=== PATIENT | male | born 1980 | race Two or more races ===

== ENCOUNTER 2020-05-02 19:01 | Emergency (ER) | payer OTHER ==
[~2020-05-02] VITALS: Ht 180.3 cm; Wt 100.0 kg
[2020-05-03 04:12] VITALS: BP 134/69
[2020-05-03] MEDS ORDERED: ACETAMINOPHEN 325MG TABLET PO ONE (04:45)
[2020-05-03] MEDS ORDERED: OXYMETAZOLINE HCL NASAL SPRAY 15ML BOTHNSTRLS SCH (04:45)
[2020-05-03] MEDS ORDERED: FLUORESCEIN SODIUM 1MG/STRIP LEFTEYE ONE (05:00)
[2020-05-03] MEDS ORDERED: TETRACAINE 0.5% OPHTH DROPS 4ML LEFTEYE ONE (05:00)
[2020-05-03] MEDS ORDERED: CEFTRIAXONE SODIUM 250 MG/VIAL IM ONE (05:45)
[2020-05-03] MEDS ORDERED: POLYMYXIN B SULFATE/TMP 10ML BOTTLE LEFTEYE STA (06:44)
== END 2020-05-03 09:05 | disposition home or self-care (01) ==
LOC: ER 19:01
DX: H16.002 Unspecified corneal ulcer, left eye (principal); H44.002 Unspecified purulent endophthalmitis, left eye; Z59.0 Homelessness
CPT/HCPCS: 93005; 96372; 99283; J0696